=== PATIENT | female | born 1995 | race Caucasian/White ===

== ENCOUNTER 2017-11-22 00:08 | Observation (INO) | payer OTHER ==
[~2017-11-22] VITALS: Ht 160 cm; Wt 71.7 kg
[~2017-11-22 00:08] MED LIST: BENZONATATE200 M1 PO; CEPHALEXIN250 M2 PO; FLINTSTONES1 EAC1 PO; SERTRALINE HCL100 MG PO; ZITHROMAX250 M2 PO
[2017-11-23 01:34] LABS: ABSOLUTE BASOPHIL COUNT 0 /CUMM (0.0-0.2); ABSOLUTE EOSINOPHIL COUNT 0.2 /CUMM (0.0-0.7); ABSOLUTE GRANULOCYTE CT 6.7 /CUMM (1.4-6.5); ABSOLUTE LYMPH COUNT 2.9 /CUMM (1.2-3.4); ABSOLUTE MONOCYTE COUNT 1.1 /CUMM (0.10-0.60); BASOPHIL % 0.3 % (0.0-2.0); EOSINOPHIL % 1.4 % (0-5); GRANULOCYTE % 61.5 % (42.2-75.2); HEMATOCRIT 36.7 % (37-47); MEAN CORPUSCULAR HGB 29.8 PG (27.0-31.0); MEAN CORPUSCULAR HGB CONC 33.7 G/DL (33.0-37.0); MEAN CORPUSCULAR VOLUME 88.4 FL (81.0-99.0); MEAN PLATELET VOLUME 8.2 FL (7.4-10.4); PLATELET COUNT 190 /CUMM (130-400); RBC DISTRIBUTION WIDTH 14.8 % (11.5-14.5); RED BLOOD CELL CT 4.15 /CUMM (4.20-5.40); WHITE BLOOD CELL COUNT 10.9 /CUMM (4.8-10.8)
== END 2017-11-23 12:02 ==
LOC: CBCO 00:08 → GNO 11-23 03:30
PROVIDERS: Obstetrics & Gynecology
DX: O47.1 False labor at or after 37 completed weeks of gestation (principal); Z3A.37 37 weeks gestation of pregnancy
CPT/HCPCS: 80307; 81001; 87086; 87804; 87804-59; 96360; 96361; G0378; G0463; J7120

== ENCOUNTER 2017-12-05 04:31 | Inpatient (IN) | payer OTHER ==
[~2017-12-05] VITALS: Ht 160 cm; Wt 71.7 kg
[2017-12-05 05:03] VITALS: BP 105/61
[2017-12-05 05:19] LABS: ABSOLUTE BASOPHIL COUNT 0.1 /CUMM (0.0-0.2); ABSOLUTE EOSINOPHIL COUNT 0.2 /CUMM (0.0-0.7); ABSOLUTE GRANULOCYTE CT 6.9 /CUMM (1.4-6.5); ABSOLUTE LYMPH COUNT 3.5 /CUMM (1.2-3.4); ABSOLUTE MONOCYTE COUNT 1.1 /CUMM (0.10-0.60); BASOPHIL % 0.4 % (0.0-2.0); EOSINOPHIL % 1.5 % (0-5); GRANULOCYTE % 58.5 % (42.2-75.2); HEMATOCRIT 38.7 % (37-47); MEAN CORPUSCULAR HGB 29.6 PG (27.0-31.0); MEAN CORPUSCULAR HGB CONC 33.1 G/DL (33.0-37.0); MEAN CORPUSCULAR VOLUME 89.5 FL (81.0-99.0); MEAN PLATELET VOLUME 8.5 FL (7.4-10.4); PLATELET COUNT 206 /CUMM (130-400); RBC DISTRIBUTION WIDTH 14.8 % (11.5-14.5); RED BLOOD CELL CT 4.33 /CUMM (4.20-5.40); WHITE BLOOD CELL COUNT 11.8 /CUMM (4.8-10.8)
--- NOTE | 2017-12-05 09:51 | Operative Report ---
Operative/Inv Procedure Report Surgery Date: 12/05/17 Name of Procedure: Repeat low transverse section via Pfannenstiel Mirena IUD placement Pre-Operative Diagnosis: G2 para 1 at 39 weeks intrauterine , prior section, patient desires elective repeat Patient desires IUD for contraception Post-Operative Diagnosis: Same Estimated Blood Loss: 700ML Surgeon/Mathematics Improvement Teacher: Anita Ace MD Anesthesia: general endotracheal tube IV Fluids: 1200 mL lactated Ringer's Urine Output: 400 mL clear urine at the end of procedure Complications: None Condition: Stable Operative Indication: 22-year-old, 39 weeks intrauterine , prior section, patient desires to have elective repeat , patient also desires to have Mirena IUD placement for contraception Operative/Procedure Note Note: The risks, benefits and alternatives of elective repeat plus Mirena IUD placement at a discussed with patient in detail, she understand, all questions answered, informed consent obtained. The patient was taken to the operating room and prepared and draped in the normal sterile fashion in a dorsal supine position with leftward tilt. General anesthesia was obtained without difficulty. A Pfannenstiel skin incision was then made with the scalpel and carried through to the underlying layer of the fascia with the scalpel. The fascia was incised in the midline and incision extended laterally. The rectus muscle was in the midline and the peritoneum identified, entered bluntly. The peritoneal incision was then extended superiorly and inferiorly with good visualization of the bladder. The bladder blade was then inserted and the vesicouterine peritoneum identified, grasped with the pickups and entered sharply with the Metzenbaum scissors. This incision was then extended laterally and the bladder flap created digitally. The bladder blade was reinserted and the uterine segment incised in transverse fashion with the scalpel. The uterine incision was then extended laterally and the bladder blade was removed and infant's head delivered atraumatically. The nose and mouth was suctioned with the suction bulb and cord clamped and cut. The was handed off to the waiting pediatricians. Cord gases was sent. The placenta was then removed manually, the uterus exteriorized, and cleared of all clots and debris. The IUD was put at the fundal area of the uterus and this drain was pushed through to the cervix using ring forcep. The uterine incision was repaired with 0 Vicryl in a running locked fashion. A second layer of the same suture was used to obtained excellent hemostasis. The uterus returned to the abdomen. The gutters were cleared off all clots, 1 g Jacky was placed at uterine incision site. Peritoneum closed with 3-0 Vicryl. The fascia was reapproximated with 0 Vicryl in a running fashion. Subcutaneous adipose tissue was reapproximated with 2-0 Vicryl. The skin was closed with 4-0 Vicryl subcuticularly. The patient tolerated the procedure well. Sponge, lap and needle counts were correct 2. The patient was taken to the recovery room awake and in stable condition Findings: live male infant as cephalic presentation, SUPA position, Apgars 8 and 9, weight 3355 g. Telegraphic Service Dispatcher present at delivery. Normal uterus, tubes and ovaries.
[2017-12-06 08:23] LABS: ABSOLUTE BASOPHIL COUNT 0 /CUMM (0.0-0.2); ABSOLUTE EOSINOPHIL COUNT 0.1 /CUMM (0.0-0.7); ABSOLUTE GRANULOCYTE CT 9.3 /CUMM (1.4-6.5); BASOPHIL % 0.3 % (0.0-2.0); GRANULOCYTE % 74.7 % (42.2-75.2); MEAN CORPUSCULAR HGB 29.8 PG (27.0-31.0); MEAN CORPUSCULAR HGB CONC 32.9 G/DL (33.0-37.0); MEAN CORPUSCULAR VOLUME 90.5 FL (81.0-99.0); MEAN PLATELET VOLUME 8.4 FL (7.4-10.4); PLATELET COUNT 187 /CUMM (130-400); RBC DISTRIBUTION WIDTH 14.4 % (11.5-14.5); RED BLOOD CELL CT 3.65 /CUMM (4.20-5.40); WHITE BLOOD CELL COUNT 12.4 /CUMM (4.8-10.8)
--- NOTE | 2017-12-06 08:55 | PN- Post Delivery/GYN ---
Subjective Subjective: feeling well Review of Systems Constitutional: Denies: chills, fever. EENTM: Denies: blurred vision, double vision, visual changes. Cardiovascular: Denies: chest pain, palpitations. Respiratory: Denies: cough, short of breath. Gastrointestinal: Denies: diarrhea, nausea, vomiting. Musculoskeletal: Denies: back pain, muscle pain. Skin: Denies: lesions. Neurological/Psychological: Denies: anxiety, depressed, headache, petit mal seizures, tingling, tremors, tonic-clonic seizures. Objective Last 24 Hrs of Vital Signs/I&O vss Physical Exam General Appearance Alert, Oriented X3, Cooperative, No Acute Distress Cardiovascular Regular Rate Lungs Clear to Auscultation Abdomen Soft Neurological Normal Speech, Normal Tone Extremities No Edema Current Medications: Current Medications Sig/Cathryn Start time Last Medication Dose Route Stop Time Status Admin Acetaminophen 1,000 MG ONCE ONE 12/06 0145 DC 12/06 N/A 1 UNIT IV 12/06 0159 0045 Acetaminophen 650 MG Q4P PRN 12/05 09 AC PO Bisacodyl 10 MG DAILY NEEDED PRN 12/05 09 AC OK Docusate Sodium 100 MG AT BEDTIME NEED.. 12/05 09 AC 12/06 PO 0000 Hydromorphone HCl 2 MG Q4P PRN 12/06 0700 AC 12/06 PO 0642 Hydromorphone HCl 50 MG Q24H PRN 12/05 0930 AC 12/05 Sodium Chloride 45 ML IV 0915 Ibuprofen 800 MG Q6P PRN 12/05 0900 AC 12/06 PO 0642 Lactated Ringer's 1,000 ML Q8H 12/05 09 AC IV Lactated Ringer's 1,000 ML Q8H 12/05 0445 DC 12/05 IV 0659 Methylergonovine 0.2 MG .[STAT] 12/05 899 DC 12/05 Maleate IM 12/05 900 0810 Oxytocin 20 UNITS Q8H 12/05 899 DC 12/05 Lactated Ringer's 1,000 ML IV 12/06 0059 1630 Oxytocin 10 UNITS ONCE ONE 12/05 899 DC 12/05 IM 12/05 0901 0800 Sertraline HCl 100 MG DAILY 12/06 1000 DC PO Sertraline HCl 100 MG AT BEDTIME 12/05 220 AC 12/05 PO 2116 Sertraline HCl 100 MG DAILY 12/05 1715 DC PO Simethicone 80 MG Q6P PRN 12/06 2345 AC 12/06 PO 0642 Simethicone 80 MG .STK-MED ONE 12/05 2356 DC PO 12/05 2357 Last 24 Hrs of Labs/Ministerio: Laboratory Tests 12/06/17 0630: CBC w Diff NO MAN DIFF REQ, RBC 3.65 L, MCV 90.5, MCH 29.8, MCHC 32.9 L, RDW 14.4, MPV 8.4, Gran % 74.7, Lymphocytes % 16.2 L, Monocytes % 7.8, Eosinophils % 1.0, Basophils % 0.3, Absolute Granulocytes 9.3 H, Absolute Lymphocytes 2.0, Absolute Monocytes 1.0 H, Absolute Eosinophils 0.1, Absolute Basophils 0 Assessment/Plan Assessment/Plan pod #1 vss afebrile OOB voiding well Problem List: 1. 2. delivery due to maternal disorder, delivered, current hospitalization Attending MD Review Statement Attending Statement Attending MD Statement: examined this patient, discussed with family, discussed with nursing
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
--- NOTE | 2017-12-07 14:15 | PN- OBGYN ---
See Addendum Surgical Brief Attending Note Brief Attending Note: pt feeling well. desires d/c today. amb without difficulty / void / todd po / + flatus. +bf and bottle. afeb, v/ss nad abd soft nt ff inc w/ dried bld on steris, dry, intact keyur min lochia ext nt no edema a/p pod 2 s/p rpt c/s, doing well -d/c home -d/c instructions reviewed -f/u fri on l&d, 2 wks in office
[2017-12-07] MEDS ORDERED: DOCUSATE SODIU100 M3 PO (14:29)
[2017-12-07] MEDS ORDERED: HYDROMORPHONE HC2 M1 PO (14:29)
[2017-12-07] MEDS ORDERED: TYLENOL325 M1 PO (14:29)
[2017-12-07] MEDS ORDERED: IBUPROFEN800 M1 PO (14:29)
--- NOTE | 2017-12-09 10:48 | Discharge Summary ---
Visit Information Visit Dates Admission Date: 12/05/17 Discharge Date: 12/07/17 Hospital Course Course Attending Physician: Juan RENDON,Anita Primary Care Physician: Unknown Hospital Course: 22yo, she was admitted for elective repeat on 12/05/2017, pt tolerate procedure well, delivered a viable male without complications. During the hospital stay, pt remained in stable condition, tolerate diet, void without difficulties, ambualting well. vitals are stable,abdomen soft, nontender, uterus firm, fundus below umbilicus. incision D/C/I. lochia mild. psychiatric consult doilaura due to personal h/o anxiety, depression , PTSD, she was dicharged on 2017 , with discharge instructions given. Complications: none Allergies: Coded Allergies: albuterol (Severe, HALLUCINATIONS 10/10/17) celery (Severe, ANAPHYLAXIS 11/23/17) fentanyl (Severe, AIRWAY CONSTRICTION 12/05/17) prednisone (Severe, ANAPHYLAXIS 10/10/17) tioconazole (From MONISTAT 1 (TIOCONAZOLE)) (Mild, HIVES 11/23/17) Opioids - Morphine Analogues (UNKNOWN 10/10/17) Significant Procedures: RLTCS, Mirena IUD placement Disposition Summary Disposition Principal Diagnosis: term pregnnacy, prior pt desires contraception Additional Diagnosis: none Discharge Disposition: home or self care Discharge Instructions General Discharge Information Code Status: Full Code Patient's Diet: regular Patient's Activity: as tolerated Follow-Up Instructions/Appts: pelvic rest for 6 wks f/u in office in 2 wks and 6 wks Medications at Discharge Discharge Medications: Continue taking these medications: Sertraline HCl (Sertraline HCl) 100 MG TABLET 1 Tablet ORAL Every night Qty = 7 Cephalexin (Cephalexin) 250 MG CAPSULE 1 Capsule ORAL Every night Qty = 40 Pediatric Multivit Comb No.42 (Flintstones) 1 EACH TAB.CHEW 1 Tablet ORAL DAILY Azithromycin (Zithromax) 250 MG TABLET 1 Dose Pack ORAL As Directed Qty = 6 Instructions: 2 the first day followed by 1 for days 2-5 Benzonatate (Benzonatate) 200 MG CAPSULE 1 Capsule ORAL THREE TIMES A DAY NEEDED as needed for COUGH Qty = 30 Start taking the following new medications: Ibuprofen (Ibuprofen) 800 MG TABLET 800 Milligram ORAL EVERY SIX HOURS NEEDED as needed for UTERINE CRAMPING Qty = 60 No Refills Comments: Last Taken:12/07/17 Time:1351 Hydromorphone HCl (Hydromorphone HCl) 2 MG TABLET 2 Milligram ORAL EVERY 4 HOURS NEEDED as needed for PAIN SCALE 7-10 ( SEVERE) Qty = 20 No Refills Comments: Last Taken:12/07/17 Time:0640 Acetaminophen (Tylenol) 325 MG TABLET 650 Milligram ORAL EVERY 4 HOURS NEEDED as needed for PAIN SCALE 1-3 ( MILD) Qty = 60 No Refills Comments: Last Taken:12/07/17 Time:1051 Docusate Sodium (Docusate Sodium) 100 MG CAPSULE 100 Milligram ORAL TWICE DAILY as needed for STOOL SOFTENER Qty = 60 No Refills Comments: Last Taken:12/06/17 Time:0000 Copies To: Anita Martinez MD Attending Review Statement Documenting Attending: Anita Martinez MD
== END 2017-12-07 15:15 | DRG 540 ==
LOC: GNO 04:31
PROVIDERS: Obstetrics & Gynecology
PROC: 10D00Z1 Extraction of Products of Conception, Low, Open Approach (ICD-10-PCS; principal; 2017-12-05)
PROC: 0UH90HZ Insertion of Contraceptive Device into Uterus, Open Approach (ICD-10-PCS; 2017-12-05)
DX: O34.211 Maternal care for low transverse scar from previous cesarean delivery (principal); N85.8 Other specified noninflammatory disorders of uterus; Z3A.39 39 weeks gestation of pregnancy; Z37.0 Single live birth; O99.344 Other mental disorders complicating childbirth; F43.10 Post-traumatic stress disorder, unspecified; F31.9 Bipolar disorder, unspecified; F41.0 Panic disorder [episodic paroxysmal anxiety]; J45.909 Unspecified asthma, uncomplicated
CPT/HCPCS: GNOS; 81001; 86920; 87086; 99233; C9399; J0131; J0690; J1170; J2210; J7120